=== PATIENT | female | born 1950 | race Caucasian/White ===

== ENCOUNTER 2024-01-01 05:35 | Day surgery (SDC) | payer MEDICARE ==
[2024-01-01] VITALS (14 sets, daily range): BP systolic 96–161; BP diastolic 48–76; PULSE 47–67; TEMP 97.2–98.2
[~2024-01-01] VITALS: Ht 162.6 cm; Wt 75.8 kg
[~2024-01-01 05:35] MED LIST: LR 1,000 ML IV SCH; Meclizine 25 MG TAB PO SCH; Scopolamine 1 MG Delivered 3-Day PATCH TD SCH
[2024-01-01] MEDS ORDERED: Pregabalin 150 MG CAP PREOP X1 PO SCH (06:00)
[2024-01-01] MEDS ORDERED: Celecoxib 400 MG PREOP X1 PO SCH (06:00)
[2024-01-01] MEDS ORDERED: ZEBETA 5MG5 MG PO (06:11)
[2024-01-01] MEDS ORDERED: ZYRTEC 10MG10 MG PO (06:12)
[2024-01-01] MEDS ORDERED: PROAIR HFA0.09 MG/AC IH (06:12)
[2024-01-01] MEDS ORDERED: Lidocaine PF 2% (20 MG/ML) 5 ML VIAL ONE (06:24)
[2024-01-01] MEDS ORDERED: Ondansetron 4 MG/2 ML VIAL ONE (06:24)
[2024-01-01] MEDS ORDERED: ASPIRIN 81M81 MG/TA2 PO (06:24)
[2024-01-01] MEDS ORDERED: fentaNYL 50 MCG/ML 2 ML VIAL ONE (06:25)
[2024-01-01] MEDS ORDERED: Midazolam 2 MG/2 ML VIAL ONE (06:25)
--- NOTE | 2024-01-01 06:29 | NUR ---
The patient ambulated back to [place] [facility] independently using a steady gait and appeared to tolerate the activity well. Vital signs obtained. Consent signed. 18G IV started in left hand on second attempt, LR infusing without difficulty. Assessment completed. Home medications reconcilled. Pre operative scrub completed to right knee. Thigh high DAINA hose applied to left lower extremity. Warm blanket provided. brought back to be at her bedside. Denies any further needs at this time.
[2024-01-01] MEDS ORDERED: Tranexamic Acid 1,000 MG/10 ML VIAL ONE (06:41)
[2024-01-01] MEDS ORDERED: ePHEDrine 50 MG/ML VIAL ONE (07:31)
[2024-01-01] MEDS ORDERED: Albuterol 0.042% Neb Soln 1.25 MG/3 ML UD IH PRN (08:00)
[2024-01-01] MEDS ORDERED: dexAMETHasone 4 MG/ML VIAL IV SCH (08:00)
[2024-01-01] MEDS ORDERED: hydrALAZINE 20 MG/ML 1 ML VIAL IV PRN (08:00)
[2024-01-01] MEDS ORDERED: Promethazine 25 MG TAB PO PRN (08:00)
[2024-01-01] MEDS ORDERED: oxyCODONE 5 MG TAB PO PRN (08:00)
[2024-01-01] MEDS ORDERED: HYDROmorphone 1 MG/1 ML SYRINGE [PACU/SDC ONLY] IV PRN (08:00)
[2024-01-01] MEDS ORDERED: Promethazine 50 MG/ML 1 ML VIAL IM PRN (08:00)
[2024-01-01] MEDS ORDERED: traMADol 50 MG TAB PO PRN (08:00)
[2024-01-01] MEDS ORDERED: Naloxone 0.4 MG/ML VIAL IV PRN (08:00)
[2024-01-01] MEDS ORDERED: Ondansetron 4 MG/2 ML VIAL IV PRN (08:00)
[2024-01-01] MEDS ORDERED: Morphine 4 MG/ML VIAL IV PRN (08:00)
[2024-01-01] MEDS ORDERED: Morphine 2 MG/1 ML VIAL [PACU/SDC ONLY] IV PRN (08:00)
[2024-01-01] MEDS ORDERED: fentaNYL 50 MCG/ML 1 ML SYRINGE/VIAL [PACU/SDC ONLY] IV PRN (08:00)
[2024-01-01] MEDS ORDERED: Topical Skin Adhesive 1 EACH (1 ML) TOP ONE (08:24)
[2024-01-01] MEDS ORDERED: Acetaminophen 500 MG TAB PO SCH (09:00)
[2024-01-01] MEDS ORDERED: Celecoxib 200 MG CAP PO SCH (09:00)
[2024-01-01] MEDS ORDERED: Bisoprolol 5 MG TAB PO SCH (09:00)
--- NOTE | 2024-01-01 10:45 | NUR ---
Pt O2 was 99-100% on 1L per NC, removed O2 at this time. RT notified of order for IS
--- NOTE | 2024-01-01 10:52 | NUR ---
Pt has arrived to the floor around 0920. Pt doing well, no complaints of pain to this point. Cryocuff in place. DRSG to right knee is CDI with morgan wrap. Pt does have family in the room, all questions answered. Pt has tolerated ice water and jello. She has no complaints of nausea. Discussed lunch and she stated that she will wait until trays are delivered. Call light within reach
--- NOTE | 2024-01-01 11:47 | NUR ---
Pt does have IS at this time, continue education for proper use
[2024-01-01] MEDS ORDERED: ceFAZolin 1 G in Water For Injection,Sterile 10 ML IV SCH (12:00)
--- NOTE | 2024-01-01 13:02 | NUR ---
Pt doing well, she is up with therapy and doing well ambulating
[2024-01-01] MEDS ORDERED: TYLENOL 500MG500 MG PO (14:39)
[2024-01-01] MEDS ORDERED: ROXICODONE 55 MG/TAB PO (14:39)
[2024-01-01] MEDS ORDERED: ASPI325T6 PO (14:39)
[2024-01-01] MEDS ORDERED: ULTRAM 50MG TAB50 MG PO (14:39)
[2024-01-01] MEDS ORDERED: CELEBREX 200MG200 MG PO (14:39)
--- NOTE | 2024-01-01 17:24 | NUR ---
Pt doing well. Assisted her for a walk in the [place]. Pt did well with walking using a walker only requiring standby for safety. Removed cryocuff at this time as it has been on most of the afternoon. Pt back in the chair, call light within reach
[2024-01-01] MEDS ORDERED: Cetirizine 10 MG TAB PO SCH (21:00)
--- NOTE | 2024-01-01 22:25 | NUR ---
Patient assessed at this time, see shift assessment, reports pain to right knee, PS of 4/10, wanted to take ultram at this time, ultram given, dressing to right knee CDI, encouraged the use of incentive spirometer, denies further needs, call light and personal items within reach, will continue to monitor.
[2024-01-02] MEDS ORDERED: ceFAZolin 1 G in Water For Injection,Sterile 10 ML IV SCH (00:30)
[2024-01-02 01:17] VITALS: BP 142/67
[2024-01-02 01:19] VITALS: BP_SYST 142
--- NOTE | 2024-01-02 02:00 | NUR ---
Patient ambulating the hallway at this time with SBA, denies further needs.
[2024-01-02 04:11] VITALS: BP 145/57; PULSE 55; TEMP 97.6
[2024-01-02 04:57] VITALS: BP_SYST 145
--- NOTE | 2024-01-02 06:00 | NUR ---
Pt doing well this morning. She is awake for the day. Assisted her to the restroom, pt did well with no assist. Pt has complaints of 6/10 pain but state she does not need any pain medication and that it is tolerable
[2024-01-02 06:51] LABS: HEMOGLOBIN 10.6 g/dl (12.5-16.0)
[2024-01-02 06:53] LABS: HEMATOCRIT 31.5 % (37.0-47.0)
--- NOTE | 2024-01-02 07:41 | NUR ---
Dressing was changed to an aquacell around 0700. Incision well approximated with no drainage or redness noted. Aquacell applied.
[2024-01-02 08:00] VITALS: BP 124/72; PULSE 60; TEMP 97.6
--- NOTE | 2024-01-02 08:00 | NUR ---
PRN pain medication brought to pt to take prior to therapy. Pt rating pain 8/10 at this time with movement, but states it isn't too bad and it is tolerable.
[2024-01-02 08:42] VITALS: BP_SYST 124
--- NOTE | 2024-01-02 09:14 | NUR ---
PT has been in and worked with pt. Fernando is okay with pt going this morning. She did complete stairs and did great.
--- NOTE | 2024-01-02 09:54 | NUR ---
Reviewed discharge instructions with pt. PT verbalized understanding, INT removed from left hand. Instructed pt to notify nursing when her ride gets here so that we can escort her out. Updated medications on the last dose taken for her records.
== END 2024-01-02 10:10 | disposition home or self-care (01) ==
LOC: SDCO 05:35 → SURG 09:20 → SDCO 10:35
PROVIDERS: Physician Assistant
DX: M17.11 Unilateral primary osteoarthritis, right knee (principal); F17.290 Nicotine dependence, other tobacco product, uncomplicated; F17.210 Nicotine dependence, cigarettes, uncomplicated; Z85.828 Personal history of other malignant neoplasm of skin
CPT/HCPCS: OP; A6197; A9284; C1713; C1776; J0665; J0690; J1100; J2250; J2405; J2704; J3010; J7120